=== PATIENT | female | born 1990 | race Two or more races ===

== ENCOUNTER 2017-06-17 18:09 | Emergency (ER) | payer MEDICAID ==
[~2017-06-17] VITALS: Ht 157.5 cm; Wt 79.3 kg
[~2017-06-17 18:09] MED LIST: ACYC-114 PO; IBUP-1222 PO
[2017-06-17] MEDS ORDERED: ACETAMINOPHEN 500 MG TABLET ONE (21:22)
[2017-06-17] MEDS ORDERED: ACETAMINOPHEN 500 MG TABLET PO ONE (21:30)
[2017-06-17] MEDS ORDERED: HYDROmorphone/PF 4 MG/ML, 1ML IM ONE (23:00)
[2017-06-17] MEDS ORDERED: HYDROmorphone 1 MG/ML, 1ML IM ONE (23:00)
[2017-06-17] MEDS ORDERED: LIDOCAINE GEL 2%, 5ML TP ONE (23:00)
[2017-06-17] MEDS ORDERED: LIDOCAINE GEL 2%, 5ML ONE (23:02)
[2017-06-17] MEDS ORDERED: HYDROmorphone 2 MG/ML, 1ML ONE (23:02)
[2017-06-18 01:05] VITALS: BP 110/74
== END 2017-06-18 01:48 | disposition home or self-care (01) ==
LOC: ED 22:02
DX: O22.42 Hemorrhoids in pregnancy, second trimester (principal); Z3A.21 21 weeks gestation of pregnancy; K59.00 Constipation, unspecified; R11.2 Nausea with vomiting, unspecified
CPT/HCPCS: 74018; 96372; 99284; J1170

== ENCOUNTER 2017-06-17 19:55 | Outpatient (CLI) | payer MEDICAID | END 2017-06-17 20:50 | disposition home or self-care (01) | LOC: LDOP 19:55 | PROVIDERS: ATTEND Obstetrics & Gynecology | DX: O26.892 Other specified pregnancy related conditions, second trimester (principal); R10.9 Unspecified abdominal pain; Z3A.22 22 weeks gestation of pregnancy | CPT/HCPCS: 59025; 99201; G0463 ==

== ENCOUNTER 2020-02-07 13:10 | Emergency (ER) | payer MEDICAID ==
[~2020-02-07] VITALS: Ht 157.5 cm; Wt 82.0 kg
[2020-02-07 13:20] VITALS: BP 123/73
[2020-02-07 13:56] LABS: HCG UR SG 1.021 (1.003-1.030)
[2020-02-07 14:09] LABS: MICROSCOPIC INDICATED
[2020-02-07] MEDS ORDERED: CEFTRIAXONE 1,000 MG ONE (15:46)
--- NOTE | 2020-02-07 15:49 | NUR ---
BREAK RN- MEDICATED ORDERED, DISCHARGE INSTRUCTIONS REVIEWED.
[2020-02-07] MEDS ORDERED: CEFTRIAXONE 1,000 MG IM ONE (16:00)
== END 2020-02-07 15:57 | disposition home or self-care (01) ==
LOC: ED 13:52
DX: N39.0 Urinary tract infection, site not specified (principal); N10 Acute pyelonephritis; R31.9 Hematuria, unspecified
CPT/HCPCS: 81001; 81025; 87077; 87086; 96372; 99283; J0696; 87186